=== PATIENT | female | born 1950 | race Caucasian/White ===

== ENCOUNTER → 2016-11-15 | Day surgery (SDC) | payer BC, MEDICARE ==
[~2016-11-15] MED LIST: Lidocain 1% EPI 1:100,000 * 30 ML MDV ONE; Sodium Bicarbonate 8.4% SYR* 10 ML SYRINGE ONE
[2016-11-15 14:38] VITALS: BP 141/80
--- NOTE | 2016-11-16 04:54 | OP ---
DATE OF OPERATION: 11/15/16 - [facility] DATE OF : 52 SURGEON: Tom Gleason MD CAMPUS MANAGER: FLOR Mendoza ANESTHESIOLOGIST: None. ANESTHESIA: Local only with 1% lidocaine with epinephrine. 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 OPERATIVE PROCEDURE: Left open carpal tunnel release. INDICATIONS: Aggie is a 66-year-old female. Five or six weeks ago, I did an open reduction internal fixation of her left distal radius fracture. She was having some mild numbness and tingling in the distribution of the carpal tunnel. It was very mild and I told her more than likely get better after we fixed the fracture and some of the swelling and discomfort went down. Four weeks later, she was still having significant numbness and tingling and so we talked about risks and benefits and she elected to proceed with a carpal tunnel release. EBL: 10 mL. COMPLICATIONS: None. FINDINGS: As expected. DESCRIPTION OF PROCEDURE: Aggie was seen in the preoperative holding area and the correct side and site were marked. I then infiltrated the operative area with 1% lidocaine with epinephrine and a little bit of bicarbonate. 20 to 30 minutes later, we came back to the operating room and the arm was prepped and draped in the usual fashion and a formal time-out was performed. I begin by making a standard ,but slightly longer than usual carpal tunnel release incision longitudinally. Dissection was carried down through the skin and subcutaneous tissue to the level of the palmar fascia. There was some significant scar tissue in the area. I did go ahead and released the palmar fascia and got down to the level of the transverse carpal ligament. As I looked to make my dissection proximally before releasing the ligament, there was significant scar tissue. Therefore, I went ahead and made a Jordan-type incision past the volar wrist flexion crease and brought it back just ulnar to the palmaris longus tendon. I then went ahead and raised full thickness flaps directly off the distal antebrachial fascia. Once the flaps were raised and a couple of self retainers were in place, there was excellent visualization. I begin my release proximal to the transverse carpal ligament to the distal antebrachial fascia. This was fully released. I then went ahead and continued my release distally staying just off the radial portion of the hook of the hamate. The carpal tunnel was fully decompressed. The transverse carpal ligament was fully released. Distally, I was able to identify the superficial palmar arch. Radially when I looked at the nerve, it looked very compressed and flattened. I checked my release proximally and distally. There was absolutely no compression on the nerve. I therefore went ahead and irrigated the wound and then the skin was closed with some 5-0 nylon suture. The wound was then dressed with Xeroform, 4x4s, sterile Webril, and an Paul wrap. She was then taken to the recovery room in stable condition. [id number]/[facility] #: [id number] SID
== END | disposition home or self-care (01) ==
LOC: OREAST 12:15
PROVIDERS: ATTEND Orthopaedic Surgery Hand Surgery
DX: G56.02 Carpal tunnel syndrome, left upper limb (principal)